=== PATIENT | male | born 1990 | race Caucasian/White ===

== ENCOUNTER 2023-12-05 12:58 | Emergency (ER) | payer BC, SELFPAY ==
[2023-12-05 13:01] VITALS: BP 161/77; PULSE 64; RESP 14; TEMP 36.9; O2SAT 98
[2023-12-05 13:43] VITALS: BP 161/77; PULSE 64; RESP 14; TEMP 36.9; O2SAT 98
--- NOTE | 2023-12-05 15:26 | ED.GENADUL_ITS ---
Discharge Plan Disposition Patient Disposition: Home Condition: Stable Discharge Details Clinical Impression: Laceration of left hand Primary Care Provider: Victorino Hernandez ED Provider: Birgit Cuenca Home Meds and New Rx's Prescriptions: New sulfamethoxazole-trimethoprim 800-160 mg tablet 1 tab PO BID 5 Days Qty: 10 0RF No Action omeprazole 20 mg capsule,delayed release(DR/EC) 20 mg PO DAILY Discharge Instructions Instructions: Laceration Repair With Stitches ED Additional Instructions: * Start antibiotics as prescribed * Keep clean with soap and water. Do not soak. Keep dry. Keep covered when outdoors or doing work activities. * Can start to apply topical antibiotic ointment tomorrow * take antibiotics as prescribed to prevent infection: Signs of infection include increased redness increased pain, foul-smelling drainage. Please return to the emergency department if you develop any of the symptoms * Follow-up for suture removal in 7 days HPI General Date/Time Provider Initiated Documentation: 12/05/23 13:31 . Limitations to Documentation: no limitations . Information obtained by: patient . HPI Narrative: 33-year-old gentleman without significant past medical history presents for evaluation of left hand laceration. Reports that he was working on an air conditioner unit and the metal cut his hand. He denies any numbness or tingling. He is able to move the hand well. He was initially evaluated by urgent care and referred here for further management and closure. His tetanus shot was updated at urgent care today. Related Data Home Medications ?Medication ?Instructions ?Recorded ?Confirmed omeprazole 20 mg capsule,delayed 20 mg PO DAILY 12/05/23 12/05/23 release sulfamethoxazole 800 1 tab PO BID 5 days #10 tabs 12/05/23 mg-trimethoprim 160 mg tablet Previous Rx's ?Medication ?Instructions ?Recorded sulfamethoxazole 800 1 tab PO BID 5 days #10 tabs 12/05/23 mg-trimethoprim 160 mg tablet Allergies Allergy/AdvReac Type Severity Reaction Status Date / Time No Known Allergies Allergy Unverified 12/05/23 13:05 General Stated Complaint: Laceration ROBINA: 4 Exam Narrative Exam Narrative: Review of Systems: All systems reviewed & are unremarkable except as noted in HPI and below Well-developed, no acute distress NCAT Unlabored respiratory effort Left hand with 3 cm laceration over the dorsum of the left hand at the base of the thumb. Lidocaine had been injected at urgent care so there is anesthesia there, but the patient has normal range of motion of the thumb with strength in all movements no active bleeding appreciated, there is no tendon involvement appreciated Course Vital Signs Vital signs: Vital Signs Temperature 36.9 C 12/05/23 13:01 Pulse 64 12/05/23 13:01 Respiratory Rate 14 12/05/23 13:01 Blood Pressure 161/77 H 12/05/23 13:01 Pulse Oximetry 98 12/05/23 13:01 Temperature 36.9 C 12/05/23 13:43 Pulse 64 12/05/23 13:43 Respiratory Rate 14 12/05/23 13:43 Respiratory Effort Normal, Non-Labored 12/05/23 13:12 Blood Pressure 161/77 H 12/05/23 13:43 Blood Pressure Position Sitting 12/05/23 13:01 Pulse Oximetry 98 12/05/23 13:43 Oxygen Delivery Method Room Air 12/05/23 13:01 Oxygen Flow Rate 0 12/05/23 13:01 Pain Level 1 12/05/23 13:43 Procedures Laceration Laceration 1: Site: hand Side (If applicable): left Size (cm): 4 Description: linear Depth: involves muscle layer Local anesthetic: other anesthetic (Done at urgent care) Skin layer closed with: other (Prolene) Size (cm): 5-0 Number of sutures: 10 Technique: simple, interrupted Medical Decision Making Emergent evaluation of hand laceration. The patient was initially evaluated at urgent care and referred here for definitive management. He had already been cleaned, tetanus updated and the wound had been injected with numbing medication. Wound was assessed and laceration closed without complication. Started on Bactrim for prophylaxis. Return cautions advised and wound care discussed. Quality:SDOH Health Related Social Needs: No Data to Display PFSH All Active Problems Laceration of left hand (Acute) Social History Smoking/Tobacco Use Status: Never Smoking risk assessment performed?: Yes Alcohol Intake: current Alcohol Intake frequency: a few times a week Alcohol type: beer Substance use type: does not use Housing: house Do you feel safe at home: Yes Do you feel safe in your relationship?: Yes PAWSS Have you Been Recently Intoxicated or Drunk Within the Last 30 days?: No Have you Ever Experienced Previous Episodes of Alcohol Withdrawal?: No Have you ever Experienced Withdrawal Seizures?: No Have you ever Experienced Delirium Tremens(DT)s?: No Have you ever undergone Alcohol Rehabilitation Treatment (i.e, inpt ot outpatient treatment programs)?: No Have you ever Experienced Blackouts?: No Have you ever Combined Alcohol with other Downers within the last 90 days?: No Have you ever Combined Alcohol with any other Substance of Abuse during the last 90 days?: No Positive Blood Alcohol level on Presentation? [PCS.BAL]: No Evidence of Increased Autonomic Activity (i.e. HR>120, tremor, sweating, agitation, nausea)?: No Result: 0
== END 2023-12-05 13:45 | disposition home or self-care (01) ==
LOC: ER 13:53
PROVIDERS: Emergency Provider Emergency Medicine; PCP Internal Medicine
DX: S61.412A Laceration without foreign body of left hand, initial encounter (principal); W26.9XXA Contact with unspecified sharp object(s), initial encounter; Y93.89 Activity, other specified
CPT/HCPCS: 12002; 99283

== ENCOUNTER 2023-12-12 14:16 | Emergency (ER) | payer BC, SELFPAY ==
[2023-12-12 14:16] VITALS: BP 138/75; PULSE 81; RESP 16; TEMP 36.6; O2SAT 96
--- NOTE | 2023-12-12 14:22 | ED.GENADUL_ITS ---
Discharge Plan Disposition Patient Disposition: Home Condition: Stable Discharge Details Clinical Impression: Encounter for removal of sutures Primary Care Provider: Victorino Hernandez ED Provider: Tee Whitley Home Meds and New Rx's Prescriptions: Continued omeprazole 20 mg capsule,delayed release(DR/EC) 20 mg PO DAILY Discharge Instructions Additional Instructions: If you have spreading redness from the wound or yellow-white discharge or severe pain return to the emergency department for reevaluation. HPI General Mode of arrival: ambulatory . Date/Time Provider Initiated Documentation: 12/12/23 14:20 . Limitations to Documentation: no limitations . Information obtained by: patient . History of Present Illness 33 year old M presents to the emergency department with the chief complaint of suture removal, described as mild, Patient started experiencing this day(s) (7) and it has been constant. No relieving factors improve symptom(s), No exacerbating factors reported . Patient notes no other symptoms.. Related Data Home Medications ?Medication ?Instructions ?Recorded ?Confirmed omeprazole 20 mg capsule,delayed 20 mg PO DAILY 12/05/23 12/12/23 release Allergies Allergy/AdvReac Type Severity Reaction Status Date / Time No Known Allergies Allergy Unverified 12/12/23 14:19 General Stated Complaint: SutureRem ROBINA: 5 Review of Systems All systems reviewed & are unremarkable except as noted in HPI and below Constitutional Constitutional: Denies chills, Denies fever(s) and Denies weakness Respiratory Respiratory: Denies cough Neurologic Neurologic: Denies weakness Exam Const General: no acute distress Orientation: alert HENMT Head: normal to inspection Ears: external ears normal General nose exam: external nose normal Mouth: moist mucous membranes Eyes General: appearance normal, both eyes and all related structures Neck Neck: normal visual inspection Resp Effort & Inspection: normal respiratory effort and able to speak in complete sentences Cardio Rate: regular rate Neuro General: patient alert and patient oriented x3 Extrem General: full ROM and capillary refill normal Psych Mental Status: mental status grossly normal Course Vital Signs Vital signs: Vital Signs Temperature 36.6 C 12/12/23 14:16 Pulse 81 12/12/23 14:16 Respiratory Rate 16 12/12/23 14:16 Blood Pressure 138/75 12/12/23 14:16 Pulse Oximetry 96 12/12/23 14:16 Temperature 36.6 C 12/12/23 14:16 Temperature Source Temporal Artery Scan 12/12/23 14:16 Pulse 81 12/12/23 14:16 Respiratory Rate 16 12/12/23 14:16 Respiratory Effort Normal, Non-Labored 12/12/23 14:19 Blood Pressure 138/75 12/12/23 14:16 Blood Pressure Position Sitting 12/12/23 14:16 Pulse Oximetry 96 12/12/23 14:16 Oxygen Delivery Method Room Air 12/12/23 14:16 Oxygen Flow Rate 0 12/12/23 14:16 Pain Level 0 12/12/23 14:16 Medical Decision Making 33-year-old male comes in for suture removal. He had sutures placed 7 days ago at the base of his left thumb and the posterior surface of his hand. He denies any pain, has full range of motion of the thumb. The wound is well-healed with 1 mm mild erythema surrounding the wound. No other signs of infection. Sutures are ready to come out, nursing will proceed with this. Wound does not appear infected so do not feel antibiotics indicated. Quality:SDOH Health Related Social Needs: No Data to Display PFSH All Active Problems (Updated 12/12/23 @ 14:25 by Tee Whitley MD) Encounter for removal of sutures (Acute) Laceration of left hand (Acute) Social History Smoking/Tobacco Use Status: Never Smoking risk assessment performed?: Yes Alcohol Intake: current Alcohol Intake frequency: a few times a week Alcohol type: beer Drug use: Never Substance use type: does not use Housing: house Do you feel safe at home: Yes Do you feel safe in your relationship?: Yes
== END 2023-12-12 14:31 | disposition home or self-care (01) ==
LOC: ER 14:33
PROVIDERS: Emergency Provider Emergency Medicine; PCP Internal Medicine
DX: Z48.02 Encounter for removal of sutures (principal)

== ENCOUNTER 2024-08-30 05:01 | Emergency (ER) | payer BC, SELFPAY ==
[2024-08-30 05:07] VITALS: BP 99/68; PULSE 99; RESP 20; TEMP 36.6; O2SAT 100
--- NOTE | 2024-08-30 05:15 | DI.CT_ITS ---
Exam(s) CT ABDOMEN PELVIS W EXAM: CT ABDOMEN PELVIS W CLINICAL HISTORY: bilateral flank pain, worse on R. TECHNIQUE: Imaging Protocol: Axial computed tomography images with coronal and sagittal reformatted images were created and reviewed CONTRAST MATERIAL: Intravenous: Omnipaque 350 Contrast volume:100 ml Oral: yes no COMPARISON: No exams were available for comparison FINDINGS: ABDOMEN and PELVIS: Lung Bases: No acute findings. Liver: Moderate hepatic steatosis. No suspicious mass. Gallbladder and biliary tract: Cholelithiasis. No wall thickening or pericholecystic fluid. No biliary dilation. Pancreas: Normal density. No abnormal calcifications or inflammatory process. No evidence of mass. Spleen: Normal. Kidneys: Normal size, contour and axis. No radiodense stones. No obstructive uropathy. No suspicious masses seen. Adrenal glands: No masses seen. Vasculature: Abdominal aorta non-dilated. Soft tissues: Tiny fat containing umbilical hernia. Bladder: No gross wall thickening. No calculi.No focal mass. Bowel: Mildly dilated loops of mid to distal small bowel without transition point likely reflecting enteritis. Normal quantity of stool. No obstruction. No bowel wall thickening. Appendix normal. Peritoneal cavity: No ascites. No focal collection. No mesenteric inflammatory response. No free air. Bones: Unremarkable for age. Reproductive organs: Unremarkable. Lymph nodes: Mildly enlarged lymph nodes the likely reactive. IMPRESSION:: Mildly dilated loops of small bowel could indicate enteritis. No findings to suggest obstruction. The preliminary [facility] report was reviewed. RADIATION DOSE DELIVERED: 591.59mGy.cm Total DLP DATA REPOSITORY: All CT scans at this facility are submitted to the National Radiology Data Registry (NRDR) Dose Index Registry (DIR) with the [employer] (A[employer]). RADIATION OPTIMIZATION: All CT scans at this facility use at least one of these dose optimization techniques: automated exposure control; mA and/or kV adjustment per patient size (includes targeted exams where dose is matched to clinical indication); or iterative reconstruction.
[2024-08-30 05:16] VITALS: BP 99/68; PULSE 99; RESP 20; TEMP 36.6; O2SAT 100
[2024-08-30 05:30] LABS: Abs Immature Grans 0.04 10^3/uL (0.0-0.06); HCT 46.2 % (40.0-50.0); HGB 16.5 g/dL (13.5-17.5); Immature Grans % 0.3 %; MCH 29.4 pg (27.0-33.0); MCHC 35.7 % (32.0-36.0); MCV 82 fL (80-95); MPV 9.5 fL (8.0-11.0); Platelet Count 280 10^3/uL (130-400); RBC 5.62 10^6/uL (4.36-5.78); RDW 11.9 % (11.8-14.1); RDW-SD 35.6 fL; WBC 11.65 10^3/uL (4.4-10.8)
[2024-08-30] MEDS: Lactated Ringers 1,000 ML 1000 ML IV (05:37)
--- NOTE | 2024-08-30 05:37 | ED.GENADUL_ITS ---
Discharge Plan Discharge Details Chief Complaint: Nausea/Vomit/Diar Clinical Impression: Abdominal pain Primary Care Provider: Victorino Hernandez ED Provider: Vamshi Traore Home Meds and New Rx's Prescriptions: No Action omeprazole 20 mg capsule,delayed release(DR/EC) 20 mg PO DAILY HPI General Date/Time Provider Initiated Documentation: 08/30/24 05:17 . HPI Narrative: This is a 34-year-old male with no significant past medical history who presents today for abdominal pain. Patient states that at 11 PM the pain started, and is severe and achy throughout his abdomen and bilateral flanks, slightly worse on the right than the left. He has had associated vomiting. Pain is constant in nature. It does not come and go. He denies any chest pain, testicular pain, or groin pain. He denies any dysuria. He denies any fever or chills. No other complaints at this time. Related Data Home Medications ?Medication ?Instructions ?Recorded ?Confirmed omeprazole 20 mg capsule,delayed 20 mg PO DAILY 12/12/23 release Allergies Allergy/AdvReac Type Severity Reaction Status Date / Time No Known Allergies Allergy Unverified 12/12/23 14:19 General Stated Complaint: Nausea/Vomit/Diar ROBINA: 3 Exam Narrative Exam Narrative: 1.Const: Well-nourished, Well-developed, appearing stated age 2.Eyes: PERRL, no conjunctival injection, and symmetrical lids. 3.ENT: Atraumatic external nose and ears. Moist MM. Neck: Symmetric, trachea midline, No thyromegaly. 4.CVS: +S1/S2, Peripheral pulses 2+ and equal in all extremities. Brisk capillary refill in all extremities. 5.RESP: Unlabored respiratory effort. Clear to auscultation bilaterally. No wheezes rales or rhonchi 6.GI: Soft, nondistended. Generalized tenderness throughout. No guarding or rebound. 7.MSK: Normocephalic/Atraumatic, Extremities w/o deformity or ttp No cyanosis or clubbing, Normal movement of all extremities 8.Skin: Warm, Dry. No rashes or lesions. 9.Neuro: account development representative II-XII grossly intact. Sensation grossly intact, no focal neurologic deficits. 10.Psych: (AAO) x3. Appropriate mood and affect Course Vital Signs Vital signs: Vital Signs Temperature 36.6 C 08/30/24 05:07 Pulse 99 H 08/30/24 05:07 Respiratory Rate 20 08/30/24 05:07 Blood Pressure 99/68 L 08/30/24 05:07 Pulse Oximetry 100 08/30/24 05:07 Temperature 36.6 C 08/30/24 05:16 Temperature Source Oral 08/30/24 05:16 Pulse 99 H 08/30/24 05:16 Respiratory Rate 20 08/30/24 05:16 Blood Pressure 99/68 L 08/30/24 05:16 Blood Pressure Position Sitting 08/30/24 05:16 Pulse Oximetry 100 08/30/24 05:16 Oxygen Delivery Method Room Air 08/30/24 05:16 Oxygen Flow Rate 0 08/30/24 05:16 Pain Level 7 08/30/24 05:16 Lab/Test Results Lab/Test Results: Laboratory Tests Range/Units 08/30/24 05:25 WBC (4.4-10.8) 10^3/uL 11.65 H RBC (4.36-5.78) 10^6/uL 5.62 Hgb (13.5-17.5) g/dL 16.5 Hct (40.0-50.0) % 46.2 MCV (80-95) fL 82 MCH (27.0-33.0) pg 29.4 MCHC (32.0-36.0) % 35.7 RDW (11.8-14.1) % 11.9 Plt Count (130-400) 10^3/uL 280 MPV (8.0-11.0) fL 9.5 Immature Gran % % 0.3 Neutrophils % % 78.5 Lymphocytes % % 9.7 Monocytes % % 10.5 Eosinophils % % 0.7 Basophils % % 0.3 Nucleated RBC % (0.0-0.3) % 0.0 Absolute Neutrophils (1.2-6.7) 10^3/uL 9.15 H Absolute Lymphocytes (1.2-3.4) 10^3/uL 1.13 L Absolute Monocytes (0.1-0.8) 10^3/uL 1.22 H Absolute Eosinophils (0.0-0.7) 10^3/uL 0.08 Absolute Basophils (0.0-0.2) 10^3/uL 0.03 VBG Lactate (<or=2.0) mmol/L 5.3 H* Medical Decision Making This is a 34-year-old male with no significant past medical history who presents today for abdominal pain. Patient states that at 11 PM the pain started, and is severe and achy throughout his abdomen and bilateral flanks, slightly worse on the right than the left. He has had associated vomiting. Pain is constant in nature. It does not come and go. He denies any chest pain, testicular pain, or groin pain. He denies any dysuria. He denies any fever or chills. No other complaints at this time. Exam demonstrates generalized tenderness throughout the abdomen, however no evidence of an acute surgical abdomen. No presence of focal tenderness at McBurney's point, negative Olvera sign. Concern and differential is for diverticulitis, less likely appendicitis, UTI or pyelonephritis is of concern including kidney stone. Will get CT imaging, treat his pain, rehydrate, monitor closely and reassess. 8:11 AM Laboratory workup shows minimal white count of 11, mild left shift, no bandemia. Initial lactate is notably elevated at 5.3, however symptomatology does not show evidence to suggest ischemic gut. Pain is not out of proportion. Patient shows mild elevation with an anion gap of 15, BUN of 22 with a creatinine of 1.1. On reassessment patient's pain is significantly improved. Urinalysis is still pending. CT scan shows enteritis, but no evidence of mesenteric ischemia or other abnormalities. With the improvement of the patient's pain, we will get repeat lactate, will pend urinalysis. Patient will be signed out to my lynn eague Dr. Leal. FINDINGS: Liver: There is fatty change involving the liver parenchyma. Gallbladder and biliary ducts: There is cholelithiasis. No gallbladder wall thickening. No pericholecystic fluid or inflammation. No biliary ductal dilation. Pancreas: No pancreatic mass. No peripancreatic inflammation. No pancreatic ductal dilation. Spleen: The spleen is homogeneous and is not enlarged. Adrenal glands: No adrenal mass. Kidneys and ureters: No hydronephrosis or hydroureter. No renal or ureteral calculus. No renal mass. Stomach and bowel: No bowel obstruction or diverticulitis. Fluid in multiple loops of slightly prominent small bowel without a focal transition zone. This extends to the ileocecal valve. Small amount of fluid in the proximal colon. Appendix: The appendix has a normal caliber. There is gas in the lumen. No periappendiceal inflammation. Intraperitoneal space: No ascites or pneumoperitoneum. Vasculature: The abdominal aorta and iliofemoral arteries are normal. The m esenteric arteries are patent. The mesenteric, portal, and hepatic veins are patent. Lymph nodes: Scattered slightly prominent mesenteric lymph nodes which could be reactive in nature. Urinary bladder: No urinary bladder calculus or wall thickening. Reproductive: Unremarkable as visualized. Bones/joints: Partial sacralization of the L5 segment. Soft tissues: Tiny umbilical hernia containing fat. IMPRESSION: 1. No urinary tract calculus or obstruction. 2. Possible enteritis, in the correct clinical setting. 3. Normal appendix. Thank you for allowing us to participate in the care of your patient. Dictated and Authenticated by: Lucio Glez MD 08/30/2024 8:08 AM Eastern Time ([place] & [place]) PFSH All Active Problems (Updated 08/30/24 @ 08:12 by Vamshi Traore DO) Abdominal pain (Acute) Social History Smoking/Tobacco Use Status: Never Smoking risk assessment performed?: Yes Alcohol Intake: current Alcohol Intake frequency: a few times a week Alcohol type: beer Drug use: Never Substance use type: does not use Housing: house Do you feel safe at home: Yes Do you feel safe in your relationship?: Yes
[2024-08-30] MEDS: Ondansetron 4 MG/2 ML VIAL IVP (05:38)
[2024-08-30] MEDS: Ketorolac 15 MG/ML VIAL IVP (05:38)
[2024-08-30] MEDS: Normal Saline - Diluent 50 ML VIAL IJ (05:45)
[2024-08-30] MEDS: Omnipaque 350 MG/ML 100 ML BTL IJ (05:45)
[2024-08-30] MEDS: Normal Saline Flush 10 ML SYR IVP (05:46)
[2024-08-30 05:51] LABS: ALT 70 U/L (16-63); AST 28 U/L (15-37); Albumin 4.5 g/dL (3.4-5.0); Alkaline Phosphatase 113 U/L (46-116); Anion Gap 15.2 mmol/L (3-11); BUN 22 mg/dL (7-18); Bilirubin, Total 1.1 mg/dL (0.2-1.0); CO2 24.8 mmol/L (21.0-32.0); Calcium 9.5 mg/dL (8.5-10.1); Chloride 99 mmol/L (98-107); Estimated GFR 90.34 (mL/min/1.73m2); Glucose 130 mg/dL (74-106); Lipase 28 U/L (<78); Potassium 3.7 mmol/L (3.5-5.1); Sodium 139 mmol/L (136-145); Total Protein 8.5 g/dL (6.4-8.2)
--- NOTE | 2024-08-30 08:09 | DI.[facility]_ITS ---
PROCEDURE INFORMATION: Exam: CT Abdomen And Pelvis With Contrast Exam date and time: 08/30/2024 5:45 AM Age: 34 years old Clinical indication: Bilat flank pain; Bilateral flank pain, worse on R TECHNIQUE: Imaging protocol: Computed tomography of the abdomen and pelvis with contrast. Radiation optimization: All CT scans at this facility use at least one of these dose optimization techniques: automated exposure control; mA and/or kV adjustment per patient size (includes targeted exams where dose is matched to clinical indication); or iterative reconstruction. Contrast material: OMNIPAQUE 350; Contrast volume: 100 ml; Contrast route: INTRAVENOUS (IV); COMPARISON: No relevant prior studies available. FINDINGS: Liver: There is fatty change involving the liver parenchyma. Gallbladder and biliary ducts: There is cholelithiasis. No gallbladder wall thickening. No pericholecystic fluid or inflammation. No biliary ductal dilation. Pancreas: No pancreatic mass. No peripancreatic inflammation. No pancreatic ductal dilation. Spleen: The spleen is homogeneous and is not enlarged. Adrenal glands: No adrenal mass. Kidneys and ureters: No hydronephrosis or hydroureter. No renal or ureteral calculus. No renal mass. Stomach and bowel: No bowel obstruction or diverticulitis. Fluid in multiple loops of slightly prominent small bowel without a focal transition zone. This extends to the ileocecal valve. Small amount of fluid in the proximal colon. Appendix: The appendix has a normal caliber. There is gas in the lumen. No periappendiceal inflammation. Intraperitoneal space: No ascites or pneumoperitoneum. Vasculature: The abdominal aorta and iliofemoral arteries are normal. The mesenteric arteries are patent. The mesenteric, portal, and hepatic veins are patent. Lymph nodes: Scattered slightly prominent mesenteric lymph nodes which could be reactive in nature. Urinary bladder: No urinary bladder calculus or wall thickening. Reproductive: Unremarkable as visualized. Bones/joints: Partial sacralization of the L5 segment. Soft tissues: Tiny umbilical hernia containing fat. IMPRESSION: 1. No urinary tract calculus or obstruction. 2. Possible enteritis, in the correct clinical setting. 3. Normal appendix. Dictated and Authenticated by: Lucio Glez MD. Orderin Eugenie Bonds MD
[2024-08-30 08:13] LABS: Glucose Negative (Negative)
[2024-08-30 08:20] LABS: C & S Indicated? No; RBC Negative HPF (0-2); WBC Negative HPF (0-5)
--- NOTE | 2024-08-30 08:35 | W.EDPROG ---
Date of service: 08/30/24 Time of Service: 08:35 Medical Decision Making I received signout on this previously healthy 34-year-old male with abdominal pain, nausea and vomiting. CT scan shows enteritis. His urinalysis was not consistent with infection. He felt improved. His lactate also improved but did not totally normalized. I offered him additional fluids and ongoing monitoring. His preference was to be discharged. We discussed that he should slowly advance his diet. We discussed that if he developed worsening pain could not eat or drink or if he had any other concerns that he should return to the emergency department. I sent him with a short course of ondansetron. Discharge Plan Disposition Patient Disposition: Home Discharge Details Clinical Impression: Abdominal pain Primary Care Provider: Victorino Hernandez ED Provider: Victorino Leal Home Meds and New Rx's Prescriptions: No Action omeprazole 20 mg capsule,delayed release(DR/EC) 20 mg PO DAILY Discharge Instructions Additional Instructions: You were seen in the emergency department for your abdominal pain. Your CAT scan shows that you have some inflammation in your small intestines called enteritis. As we discussed if you develop worsening pain cannot eat or drink as well as nausea or vomiting or if you have any other concerns please return to the emergency department. Otherwise please follow-up with your primary care provider as needed. Discharge Data Discharge Date/Time-TO BE ENTERED AT DEPARTURE: 08/30/24 09:14
[2024-08-30 08:48] VITALS: BP 123/62; PULSE 98; RESP 16; O2SAT 99
[2024-08-30] MEDS: Ondansetron O.D.T. 4 MG TABEF, 3 TABS/BTL PO (09:05)
[2024-08-30] MEDS: Ondansetron O.D.T. 4 MG TABEF PO (09:12)
== END 2024-08-30 09:14 | disposition home or self-care (01) ==
PROVIDERS: Student in an Organized Health Care Education/Training Program; Emergency Provider Emergency Medicine; PCP Internal Medicine
DX: R10.9 Unspecified abdominal pain (principal); R11.2 Nausea with vomiting, unspecified; R19.7 Diarrhea, unspecified
CPT/HCPCS: 00123; 36415; 80053; 83690; 96361; 96374; 96375; 99285; 74177; 81003; 81015; 83605; 85025; J1885; J2405; J3490